=== PATIENT | female | born 1970 | race Two or more races ===

== ENCOUNTER 2018-04-07 13:23 | Day surgery (SDC) | payer BC ==
[2018-04-07] MEDS ORDERED: PROPOFOL 20 ML (15:22)
[2018-04-07] MEDS ORDERED: EPHEDrine SULFATE 50 MG/5 ML SYG IV (16:00)
[2018-04-07] MEDS ORDERED: hydrALAzine 20 MG INJ IV (16:00)
[2018-04-07] MEDS ORDERED: DIPHENHYDRAMINE 50 MG INJ IV (16:00)
[2018-04-07] MEDS ORDERED: MEPERIDINE 25 MG INJ IV (16:00)
[2018-04-07] MEDS ORDERED: OXYCODONE/ACETAMINOPHEN (5/325) TAB PO ×2 (16:00)
[2018-04-07] MEDS ORDERED: FENTAnyl 50 MCG/ML VIAL IV ×3 (16:00)
[2018-04-07] MEDS ORDERED: MIDAZOLAM 1 MG/ML 2 ML INJ IV (16:00)
[2018-04-07] MEDS ORDERED: LABETALOL HCL 20MG INJ IV (16:00)
[2018-04-07] MEDS ORDERED: METOCLOPRAMIDE 10 MG INJ IV (16:00)
[2018-04-07] MEDS ORDERED: ONDANSETRON 4 MG INJ IV (16:00)
== END 2018-04-07 17:38 | disposition home or self-care (01) ==
LOC: GIL 13:23
DX: Z12.11 Encounter for screening for malignant neoplasm of colon (principal); Z80.0 Family history of malignant neoplasm of digestive organs
CPT/HCPCS: 45378; 84703